=== PATIENT | female | born 1960 | race Caucasian/White ===

== ENCOUNTER → 2020-10-10 11:17 | Outpatient (CLI) | payer OTHER, SELFPAY ==
[2020-10-15 03:06] LABS: Almond <0.10 kU/L (Class 0); Apple <0.10 kU/L (Class 0); Beef <0.10 kU/L (Class 0); Carrot <0.10 kU/L (Class 0); Cashew <0.10 kU/L (Class 0); Chicken <0.10 kU/L (Class 0); Egg, White <0.10 kU/L (Class 0); Egg, Whole <0.10 kU/L (Class 0); Egg, Yolk <0.10 kU/L (Class 0); Gluten <0.10 kU/L (Class 0); Milk (Cow) <0.10 kU/L (Class 0); Oat <0.10 kU/L (Class 0); Pea <0.10 kU/L (Class 0); Pecan <0.10 kU/L (Class 0); Pork <0.10 kU/L (Class 0); Potato, White <0.10 kU/L (Class 0); Salmon <0.10 kU/L (Class 0); Strawberry <0.10 kU/L (Class 0); Tomato 0.11 kU/L (Class 0/I); Walnut, (Food) <0.10 kU/L (Class 0); Wheat <0.10 kU/L (Class 0); Yeast <0.10 kU/L (Class 0)
[2020-10-15 07:59] LABS: Banana 0.33 kU/L (Class I); Peanut <0.10 kU/L (Class 0)
== END ==
PROVIDERS: PCP Family Medicine; Referring Provider Otolaryngology Otolaryngology/Facial Plastic Surgery; Visit Provider Otolaryngology Otolaryngology/Facial Plastic Surgery
DX: T78.40XA Allergy, unspecified, initial encounter (principal)
CPT/HCPCS: 36415; 86003

== ENCOUNTER → 2021-04-01 | Outpatient (CLI) | payer OTHER, SELFPAY | END | disposition home or self-care (01) | LOC: LABSPEC 15:19 | PROVIDERS: PCP Family Medicine; Referring Provider Otolaryngology Otolaryngology/Facial Plastic Surgery; Visit Provider Otolaryngology Otolaryngology/Facial Plastic Surgery | DX: J02.9 Acute pharyngitis, unspecified (principal) | CPT/HCPCS: 87070; 87077; 87186 ==

== ENCOUNTER 2022-11-14 19:06 | Emergency (ER) | payer OTHER, SELFPAY ==
[2022-11-14 19:08] VITALS: BP 183/104; PULSE 86; RESP 16; TEMP 35.7; O2SAT 100; BMI 27.6
--- NOTE | 2022-11-14 19:16 | CT_ITS ---
STUDY: CT ABDOMEN AND PELVIS WITHOUT CONTRAST REASON FOR EXAM: Female, 62 years old. Kidney Stone RADIATION DOSAGE (If Supplied By Facility): CTDIvol = ( 8.03 ) mGy, DLP = ( 425.37 ) mGycm TECHNIQUE: Transaxial images were obtained from the dome of the diaphragm to the symphysis pubis without oral contrast, and without intravenous contrast. Sagittal and coronal images were reconstructed. Individualized dose optimization techniques were used for this CT. COMPARISON: None. FINDINGS: The visualized lung bases are unremarkable. The visualized portions of the heart are within normal limits. Normal liver. Normal gallbladder and extrahepatic biliary system. Normal spleen. Normal pancreas. Normal bilateral adrenal glands. Punctate stone in the right kidney. Right hydronephrosis and right hilar hydroureter with a distal 2 mm ureteral stone at the acetabular level. Normal left kidney. Normal visualized stomach. Normal small intestine. Normal colon. The appendix is not visualized. Normal abdominal aorta. Normal inferior vena cava. Normal retroperitoneum. Normal urinary bladder. Normal abdominal wall. Degenerative vertebral changes and mild scoliosis. Probable small bony island at the upper sacrum. CT/Abdomen/Pelvis without Cont IMPRESSION: Punctate right renal stone. Right hydronephrosis and hydroureter with a distal ureteral stone noted. Electronically Signed: Mike Duenas DO at 20:34 EDT Reading Location ID and State: [facility] / [place] Tel [phone], Service support ,
--- NOTE | 2022-11-14 19:30 | EX.ED.DYSGE1 ---
HPI History of Present Illness Chief Complaint: Flank Pain Detail of Chief Complaint: Right flank pain that radiates anteriorly Informant: patient and spouse/S.O. Onset/Context/Timing Onset: Days (Onset Thursday of this week) Context: Sudden Onset Timing: Intermittent (Initially intermittent has been constant since 0) Quality: Pain pain Location: Right flank that radiates to the right inguinal region Current Severity: Moderate Maximum Severity: Severe Worsened by: Nothing Relieved by: Nothing Associated Symptoms Associated Symptoms: Nausea and dry heaves Narrative Narrative: Patient is a 62-year-old woman with a of hypertension on hydrochlorothiazide. She denies history of renal dysfunction, peptic ulcer disease, diabetes or allergy to NSAIDs. She denies fever, chills night sweats. She denies headache, visual, ocular auditory symptoms. She denies cardiac respiratory symptoms. She denies intolerance to greasy or fried foods. She has no known history of liver or gallbladder disease. She denies history of renal or ureterolithiasis. She does endorse urgency without hematuria or dysuria. There is no history of trauma. She has not noted a rash. She was seen in urgent care and told she had blood in her urine. Prior similar symptoms: No Recent Illness/Hospitalization: No PFSH PFS Medical History (Updated 11/14/22 @ 21:[address] Rock Kendrick MD) Fibromyalgia Home Medications hydrochlorothiazide 12.5 mg tablet 12.5 mg PO DAILY 11/14/22 [History Last Taken Unknown] oxycodone-acetaminophen 5 mg-325 mg tablet 1 tab PO Q6H PRN PRN pain 5 days #20 TABLETS 11/14/22 [Rx Last Taken Unknown] Allergy/AdvReac Type Severity Reaction Status Date / Time Penicillins [PCN] Allergy Rash Verified 11/14/22 19:07 Surgical History (Updated 11/14/22 @ 19:52 by Columba Pagan) History of appendectomy Social History (Updated 11/14/22 @ 19:[address] Rock Kendrick MD) household members: spouse Smoking Status: Never smoker substance use type: does not use ROS ROS ED Constitutional Constitutional ED: Denies chills, fever(s), subjective, sweats or weight loss Eyes Eyes: Denies blurry vision, change in vision or diplopia ENT ENT ED: Denies ear pain, rhinorrhea or sore throat Cardiovascular Cardiovascular: Denies chest pain, orthopnea, palpitations or racing heartbeat Respiratory/Chest Respiratory/Chest: Denies cough, dyspnea, dyspnea on exertion or orthopnea Gastrointestinal Gastrointestinal: Reports abdominal pain, nausea and vomiting; Denies constipation, diarrhea or melena Genitourinary Genitourinary ED: Denies dysuria, hematuria or urinary frequency Musculoskeletal Musculoskeletal: Reports other Details: Right flank pain ; Denies arthralgias, back pain, myalgias or neck pain Integumentary Denies rash Neurologic Neurologic: Denies headache(s) or paresthesias Endocrine Endocrinology: Denies cold intolerance or heat intolerance Hematologic/Lymphatic Hematologic/Lymphatic: Reports systems reviewed and no addt'l complaints, except as documented EXAM Physical Exam Const Vital Signs: 11/14/22 19:08 Temperature 96.3 F L Temperature Source Temporal Pulse Rate 86 Respiratory Rate 16 Blood Pressure 183/104 H Blood Pressure Mean 130 Pulse Ox 100 Oxygen Delivery Method Room Air Positive well nourished and well developed Constitutional Narrative: Patient looks uncomfortable and is unable to find a position of comfort. Blood pressure is elevated which is abnormal for her. Suspect this is due to the pain. General Appearance ED: well developed and pallor; Negative for cyanotic, diaphoretic or NAD HEENT Reports moist mucous membranes HEENT Narrative: Head is normocephalic and atraumatic. Ears are normal. Nares patent. Posterior pharynx unremarkable. Eyes PERRL and EOMs intact bilaterally General Eye ED: Negative for pale conjunctiva or scleral icterus Neck no lymphadenopathy, supple and no JVD Chest Wall inspection of chest normal and palpation of chest normal Resp normal respiratory effort and clear to auscultation bilaterally Cardio regular rate, regular rhythm, S1 normal heart sound, S2 normal heart sound and no murmurs GI normal to inspection, nondistended, normoactive bowel sounds, non-distended and no masses; Negative for non-tender or hepatosplenomegaly GI Narrative: There is pain to deep palpation over the right kidney. Inspection: Negative for abdominal distention Auscultation: normoactive bowel sounds Palpation: soft Back/Spine no CVA tenderness Thoracic Spine / Upper Back: Negative for thoracic spinal tenderness Lumbar Spine / Lower Back: Negative for lumbar spinal tenderness Extremity normal to inspection General Extremety ED: Negative for edema or tenderness General Extremity: Negative for edema Neuro oriented x3 and CN's II-XII intact bilaterally Sensorium / Orientation: alert Psych mental status grossly normal Skin no rashes or lesions noted, no wounds and skin turgor normal General Skin Exam: pallor; Negative for elasticity normal or jaundice MDM MDM MDM Narrative Medical decision making narrative: History and physical is consistent with ureteral lithiasis. Will obtain UA to assess for evidence of infection. CBC to assess white count differential. BMP to assess renal function. Since patient prior renal function was normal she was treated with ketorolac 15 mg IV push as well as 4 mg of morphine. She received Zofran for her nausea and vomiting. History & Record Review Additional record(s) reviewed:: Other (Only records available for review is allergy testing October 2020.) Lab Data Attestation: I reviewed the patient's lab results. Lab results narrative: CBC is unremarkable. Basic metabolic panel reveals a creatinine of 1.11 with a GFR of 53. UA is unremarkable without evidence of infection. Patient was reassessed she is smiling in no discomfort. Will discharge to home with opiate analgesic. We will not discharge with NSAIDs since her creatinine is Elave dated with GFR 53. Labs: Laboratory Results - last 24 hr 11/14/22 11/14/22 11/14/22 19:25 19:25 20:25 WBC 8.3 RBC 4.24 Hgb 12.8 Hct 38.4 MCV 90.6 MCH 30.2 MCHC 33.3 RDW Std Deviation 40.8 RDW Coeff of Aguilar 12.3 Plt Count 221 MPV 9.1 Immature Gran % (Auto) 0.400 Neut % (Auto) 80.9 H Lymph % (Auto) 9.7 L Ransom % (Auto) 7.4 Eos % (Auto) 1.1 Baso % (Auto) 0.5 Absolute Neuts (auto) 6.7 Absolute Lymphs (auto) 0.80 L Nucleated RBC % 0 Sodium 136 Potassium 4.0 Chloride 103 Carbon Dioxide 28.0 Anion Gap 5 BUN 23 H Creatinine 1.11 H Estim Creat Clear Calc 50.45 Est GFR (MDRD) Af Amer 64 Est GFR (MDRD) Non-Af 53 L BUN/Creatinine Ratio 20.7 H Glucose 112 H Calcium 9.9 Urine Color Yellow Urine Clarity Clear Urine pH 7.0 Ur Specific [place] 1.010 Urine Protein Negative Urine Glucose (UA) Normal Urine Ketones Negative Urine Occult Blood Negative Urine Nitrite Negative Urine Bilirubin Negative Urine Urobilinogen Normal Ur Leukocyte Esterase Negative Urine RBC 0 SEEN Urine WBC 0 SEEN Ur Squamous Epith Cells 0 SEEN Urine Bacteria 0 SEEN Urine Mucus 0 SEEN Radiography Diagnostic Testing: Clinical Impression(s) from Imaging Studies Abdomen/Pelvis CT 11/14/22 19:16 IMPRESSION: Punctate right renal stone. Right hydronephrosis and hydroureter with a distal ureteral stone noted. Electronically Signed: Mike Duenas DO at 20:34 EDT Reading Location ID and State: [facility] / [place] Tel [phone], Service support , Additional Tests and Interventions Additional Tests or Interventions: Patient was reassessed at 1804. She is smiling. Her pain is improved markedly. Discharge Plan Triage Chief Complaint: Flank Pain Other Complaint: Abd Pain Complaint ED Provider: Rock Kendrick Dx/Rx/DC Orders Clinical Impression: Hydronephrosis with urinary obstruction due to ureteral calculus, History of hypertension, Calculus of right kidney, Acute renal insufficiency Instructions: ED Kidney Stone w/ Colic Prescriptions: New oxycodone-acetaminophen [oxycodone-acetaminophen] 5-325 mg tablet 1 tab PO Q6H PRN PRN (Reason: pain) 5 Days Qty: 20 0RF No Action hydrochlorothiazide 12.5 mg tablet 12.5 mg PO DAILY Primary Care Provider: Shahram Perea Referrals: Shahram Perea MD [Primary Care Provider] -
[2022-11-14 19:41] LABS: Absolute Neutrophil Count 6.7 X10^3/uL (2.0-7.7); Basophil# 0.04 X10^3/uL; Basophil% 0.5 % (0-1); Eosinophil# 0.09 X10^3/uL; Eosinophils% 1.1 % (0-5); Hematocrit 38.4 % (37-47); Hemoglobin 12.8 g/dL (12.0-15.0); Lymphocyte % 9.7 % (19-41); Mean Corp Hgb Conc 33.3 g/dL (32-36); Mean Corpuscular Hgb 30.2 pg (27.0-32.0); Mean Corpuscular Volume 90.6 fL (81-99); Mean Platelet Vol. 9.1 fl (6.2-12.0); Monocyte# 0.61 X10^3/uL; Monocyte% 7.4 % (0-10); NRBC Flagged by Analyzer 0 % (0-5); Neutrophil # 6.72 X10^3/uL (2.7-7.7); Neutrophil % 80.9 % (47-70); Platelet Count 221 K/mm3 (150-450); RBC Distribution Width CV 12.3 % (11.6-14.6); RBC Distribution Width SD 40.8 fl (35.1-43.9); Red Blood Count 4.24 M/mm3 (4.2-5.4); White Blood Count 8.3 K/mm3 (4.4-11.0)
[2022-11-14] MEDS: Morphine 4 MG/ML Syringe IV (19:48)
[2022-11-14] MEDS: Ketorolac 15 MG/ML Vial IV (19:49)
[2022-11-14] MEDS: Ondansetron 4 MG/2 ML Vial IV (19:49)
--- NOTE | 2022-11-14 19:51 | ED.RN ---
FLUIDS STARTED AT 1940. UNABLE TO DOCUMENT.
[2022-11-14 20:00] LABS: Anion Gap 5 (5-15); BUN 23 mg/dL (7-18); BUN/Creat Ratio 20.7 RATIO (10-20); Calcium,Total 9.9 mg/dL (8.5-10.1); Chloride 103 mmol/L (98-107); Creatinine, Serum 1.11 mg/dL (0.55-1.02); EST Glomerular Filtration Rate 53 mL/min (>60); Est Glom Filt Rate - Afr Amer 64 mL/min (>60); Estimated Creatinine Clearance 50.45 ml/min; Glucose 112 mg/dL (74-106); Sodium Level 136 mmol/L (136-145)
[2022-11-14] MEDS: 0.9% Normal Saline 1,000 ML 999 ML IV (20:41)
[2022-11-14 20:42] LABS: Bacteria 0 SEEN /hpf (None Seen); Mucous, Urine 0 SEEN /hpf (<or=2+); Red Blood Cells-Urine 0 SEEN /hpf (0-5); Squamous Epithelial Cells - UA 0 SEEN /hpf (5-10); White Blood Cells 0 SEEN /hpf (0-5)
[2022-11-14 20:44] LABS: Color, Urine Yellow (Yellow); Glucose, Dipstick Normal (Normal); Ketone-Dipstick Negative (Negative); Leukocyte Esterase-Dipstick Negative /ul (Negative); Nitrite-Dipstick Negative (Negative); Occult Blood-Urine Negative /ul (Negative); Protein-Dipstick Negative (Negative); Urine Bilirubin Dipstick Negative (Negative); Urine Clarity Clear (Clear); Urine Urobilinogen Normal (Normal)
[2022-11-14 21:33] VITALS: BP 124/75; PULSE 70; RESP 15; O2SAT 98
== END 2022-11-14 21:35 | disposition home or self-care (01) ==
PROVIDERS: Emergency Provider Emergency Medicine; PCP Family Medicine; Visit Provider Emergency Medicine
DX: N13.2 Hydronephrosis with renal and ureteral calculous obstruction (principal); R31.9 Hematuria, unspecified; I10 Essential (primary) hypertension; Z79.899 Other long term (current) drug therapy; M79.7 Fibromyalgia; Z90.49 Acquired absence of other specified parts of digestive tract
CPT/HCPCS: 74176; 80048; 81001; 85025; 96361; 96374; 96375; 99283; J7030; A4216; J2405

== ENCOUNTER → 2023-06-22 | Outpatient (CLI) | payer OTHER, SELFPAY | END | disposition home or self-care (01) | PROVIDERS: PCP Family Medicine; Referring Provider Otolaryngology Otolaryngology/Facial Plastic Surgery; Visit Provider Otolaryngology Otolaryngology/Facial Plastic Surgery | DX: J02.9 Acute pharyngitis, unspecified (principal) | CPT/HCPCS: 87070 ==